=== PATIENT | female | born 1940 | race African-American/Black ===

== ENCOUNTER 2022-09-16 07:09 | Day surgery (SDC) | payer OTHER ==
[2022-09-14 16:07] VITALS: BMI 29.9
[2022-09-16 07:25] VITALS: RESP 18
[2022-09-16] MEDS ORDERED: LIDOCAINE HCL/PF 2% SDV 5ML VIAL ONE (07:44)
[2022-09-16] MEDS ORDERED: PROPOFOL 120 ML ONE (07:44)
[2022-09-16 09:19] VITALS: TEMP 96.9
[2022-09-16 09:44] VITALS: BP 156/70; PULSE 78
== END 2022-09-16 09:44 | disposition home or self-care (01) ==
LOC: FASU-ENDO 07:09
PROVIDERS: ATTEND Internal Medicine Gastroenterology
PROC: 0DBN8ZX Excision of Sigmoid Colon, Via Natural or Artificial Opening Endoscopic, Diagnostic (ICD-10-PCS; principal; 2022-09-16 08:58)
DX: Z12.11 Encounter for screening for malignant neoplasm of colon (principal); D12.5 Benign neoplasm of sigmoid colon; K64.1 Second degree hemorrhoids; K64.8 Other hemorrhoids
CPT/HCPCS: 82962; 88305-TC